=== PATIENT | female | born 1930 | race Caucasian/White ===

== ENCOUNTER 2018-04-07 09:52 | Emergency (ER) | payer MEDICARE, OTHER ==
[~2018-04-07 09:52] MED LIST: ACET325T9 PO; AMOX1TAB61 PO; AMOX500C PO; DOCU-109 PO; FERR325T14 PO; FLUT1DIS3 IH; GUAI-108 PO; IPRA3AMP29 NEB; LISI10TA2 PO; LISI1TAB7 PO; MAG30ORA2 PO; MAGN2400 PO; METH29OI TP; NYST15PO9 TP; OLAN5TAB7 PO
[2018-04-07] MEDS ORDERED: IV NORMAL SALINE 500ML 500 ML IV ONE (10:15)
--- NOTE | 2018-04-07 10:18 | PHYS DOC ---
Past History Past Medical History: Hypertension Past Surgical History: Hip Replacement Alcohol Use: None Drug Use: None Adult General Chief Complaint Chief Complaint: SHORTNESS OF BREATH HPI HPI 87 year old female presents via EMS from [facility] with shortness of breath. The patient was eating breakfast and the staff felt like she was having some respiratory distress. Nursing oh found her O2 sat on room air 93%. They called EMS. EMS found her oxygen to be 96%. She does have wet sounding cough and is not overly conversant. We're unsure of her baseline in this regard, but she is reported to have dementia. The patient is able to tell us her name and she is aware she is at the hospital. She states feeling "sick" but denies any pain and does not really answer the question if she is short of breath. She has not been reported to have fever at the facility. Review of Systems Review of Systems Constitutional: Denies fever or chills [] Eyes: Denies change in visual acuity, redness, or eye pain [] HENT: Denies nasal congestion or sore throat [] Respiratory: Cough, shortness of breath [] Cardiovascular: No additional information not addressed in HPI [] GI: Denies abdominal pain, nausea, vomiting, bloody stools or diarrhea [] : Denies dysuria or hematuria [] Musculoskeletal: Denies back pain or joint pain [] Integument: Denies rash or skin lesions [] Neurologic: Denies headache, focal weakness or sensory changes [] Endocrine: Denies polyuria or polydipsia [] All other systems were reviewed and found to be within normal limits, except as documented in this note. Current Medications Current Medications Current Medications Medications (Trade) Dose Ordered Sig/Alla Start Time Stop Time Status Last Admin Dose Admin Albuterol/ Ipratropium (Duoneb) 3 ml 1X ONCE 04/07/18 10:15 04/07/18 10:16 UNV Sodium Chloride 500 ml @ 0 mls/hr 1X ONCE 04/07/18 10:15 04/07/18 10:16 UNV Allergies Allergies Allergies Coded Allergies Type Severity Reaction Last Updated Verified No Known Drug Allergies 12/28/14 No Physical Exam Physical Exam Constitutional: Well developed, well nourished, no acute distress, non-toxic appearance. [] HENT: Normocephalic, atraumatic, bilateral external ears normal, oropharynx moist, no oral exudates, nose normal. [] Eyes: PERRLA, EOMI, conjunctiva normal, no discharge. [] Neck: Normal range of motion, no tenderness, supple, no stridor. [] Cardiovascular:Heart rate regular rhythm, no murmur [] Lungs & Thorax: Bilateral breath sounds decreased at the bases. No wheezing.[] Abdomen: Bowel sounds normal, soft, no tenderness, no masses, no pulsatile masses. [] Skin: Warm, dry, no erythema, no rash. [] Back: No tenderness, no CVA tenderness. [] Extremities: No tenderness, no cyanosis, no clubbing, ROM intact, no edema. [] Neurologic: Alert and oriented to person and place, normal motor function, normal sensory function, no focal deficits noted, but bilateral upper extremity weakness that is symmetrical. [] Psychologic: Affect normal, mood blunted. [] EKG EKG [] Radiology/Procedures Radiology/Procedures [] Impressions: EXAM: Chest, single view. HISTORY: Cough. Shortness of breath. COMPARISON: CT dated 12/30/2014. FINDINGS: A frontal view of the chest is obtained. There is no consolidation, pleural effusion or pneumothorax. The heart is normal in size. There are multiple calcified granulomas. There are few additional small nodular opacities within the bilateral upper and mid thorax which may be due to noncalcified nodules or nodular infiltrate. There is suspected emphysema. IMPRESSION: 1. Several small nodular opacities within both lungs, some of which appear noncalcified. This may be due to nodular infiltrate. Follow-up can be performed to confirm stability or resolution. 2. Suspected emphysema. Electronically signed by: Cesia Maurer MD (04/07/2018 10:47 AM) [facility] DICTATED AND SIGNED BY: CESIA MAURER MD DATE: 04/07/18 1045 CC: ISABELLE FRAGA DO; PCP,NO Course & Med Decision Making Course & Med Decision Making Pertinent Labs and Imaging studies reviewed. (See chart for details) The patient's chest x-ray shows nodules in both lungs, some which are noncalcified. There is question of nodule infiltrate. The patient's labs are unremarkable. She has not white count. She has no fever. A bacterial or fungal infection does not seem likely. The patient has urinary tract infection. I will treat her with 1 g of Rocephin in the ED followed by a 5 day course of nitrofurantoin. The patient is stable. I believe she can return to the nursing facility after we initiated treatment. [] Dragon Disclaimer Dragon Disclaimer This electronic medical record was generated, in whole or in part, using a voice recognition dictation system. Departure Departure: Referrals: PCP,AGATA (PCP) Scripts Nitrofurantoin Macrocrystal (NITROFURANTOIN) 100 Mg Capsule 1 CAP PO BID, #10 CAP Prov: ISABELLE FRAGA DO 04/07/18 ISABELLE FRAGA DO Apr 07, 2018 10:18
[2018-04-07] MEDS ORDERED: IPRATRPIUM/ALBUTEROL 0.5/2.5MG 3 ML NEBU. NEB ONE (10:30)
[2018-04-07 10:45] LABS: BASO # 0.1 x10^3/uL (0.0-0.2); BASO % 1 % (0-3); EOS # 0.1 x10^3/uL (0.0-0.7); EOS % 1 % (0-3); HEMATOCRIT 30.2 % (36.0-47.0); HEMOGLOBIN 10.1 g/dL (12.0-15.5); LYMPH # 0.7 x10^3/uL (1.0-4.8); LYMPH % 7 % (24-48); MEAN CORPUSCULAR HEMOGLOBIN 30 pg (25-35); MEAN CORPUSCULAR HGB CONC 34 g/dL (31-37); MEAN CORPUSCULAR VOLUME 89 fL (79-100); MONO # 0.8 x10^3/uL (0.0-1.1); MONO % 8 % (0-9); NEUT % 83 % (31-73); PLATELET COUNT 365 x10^3/uL (140-400); RED CELL DISTRIBUTION WIDTH 13.6 % (11.5-14.5); WHITE BLOOD COUNT 9.7 x10^3/uL (4.0-11.0)
[2018-04-07 10:50] VITALS: BP 117/64
--- NOTE | 2018-04-07 10:50 | RAD ---
EXAM: Chest, single view. HISTORY: Cough. Shortness of breath. COMPARISON: CT dated 12/30/2014. FINDINGS: A frontal view of the chest is obtained. There is no consolidation, pleural effusion or pneumothorax. The heart is normal in size. There are multiple calcified granulomas. There are few additional small nodular opacities within the bilateral upper and mid thorax which may be due to noncalcified nodules or nodular infiltrate. There is suspected emphysema. IMPRESSION: 1. Several small nodular opacities within both lungs, some of which appear noncalcified. This may be due to nodular infiltrate. Follow-up can be performed to confirm stability or resolution. 2. Suspected emphysema. Electronically signed by: Cesia Maurer MD (04/07/2018 10:47 AM) [facility]
[2018-04-07 10:58] LABS: ALBUMIN 2.4 g/dL (3.4-5.0); ALBUMIN/GLOBULIN RATIO 0.6 (1.0-1.7); CALCIUM 9.5 mg/dL (8.5-10.1); CREATININE 1.1 mg/dL (0.6-1.0); GFR 47.1; POTASSIUM 4.3 mmol/L (3.5-5.1); TOTAL BILIRUBIN 0.3 mg/dL (0.2-1.0); TOTAL PROTEIN 6.4 g/dL (6.4-8.2)
[2018-04-07 12:25] LABS: BILIRUBIN,URINE NEG (NEG); CLARITY,URINE CLEAR; COLOR,URINE YELLOW; GLUCOSE,URINE NEG (NEG)
[2018-04-07 12:26] LABS: BACTERIA,URINE MANY /HPF (0-FEW); NITRITE,URINE POS (NEG); RBC,URINE 0 /HPF (0-2); SQUAMOUS EPITHELIAL CELL,UR OCC /LPF; UROBILINOGEN,URINE 0.2 mg/dL (0.2 mg/dL)
[2018-04-07] MEDS ORDERED: SULF1TAB24 PO (13:35)
[2018-04-07] MEDS ORDERED: NITR100C PO (13:40)
[2018-04-07] MEDS ORDERED: cefTRIAXone IV Push 1 GM VIAL. IVP ONE (13:45)
== END 2018-04-07 14:35 ==
LOC: ER 09:52
DX: R91.8 Other nonspecific abnormal finding of lung field (principal); N39.0 Urinary tract infection, site not specified; I10 Essential (primary) hypertension; R53.1 Weakness
CPT/HCPCS: 36415; 71045; 80053; 81001; 85025; 87086; 94640; 96374; 99285; J0696; J7040; J7620; 87186

== ENCOUNTER 2019-04-24 12:05 | Inpatient (IN) | payer MEDICARE, OTHER ==
[~2019-04-24] VITALS: Ht 157.5 cm; Wt 43.6 kg
[~2019-04-24 12:05] MED LIST changes: +LISI1TAB20 PO; -LISI1TAB7 PO; +NITR100C PO; +SULF1TAB24 PO
--- NOTE | 2019-04-24 12:38 | PHYS DOC ---
Past History Past Medical History: Dementia, Depression, Hypertension Past Surgical History: Hip Replacement Alcohol Use: None Drug Use: None Adult General Chief Complaint Chief Complaint: SHORTNESS OF BREATH HPI HPI 88-year-old female with underlying history of dementia, COPD presents to the emergency department with complaints of shortness of breath, hypoxia. Apparently patient was diagnosed with pneumonia at the nursing facility as morning had low saturations requiring 15 L per EMS and subsequent is brought to the ER for further evaluation. Patient is unable to provide any further information with regards to her symptoms. Patient is a full code. Review of Systems Review of Systems Review of systems unable to be determined given patient's unwind dementia with behavioral disturbance. She does not answer questions upon evaluation. All other systems were reviewed and found to be within normal limits, except as documented in this note. Allergies Allergies Allergies Coded Allergies Type Severity Reaction Last Updated Verified No Known Drug Allergies 12/28/14 No Physical Exam Physical Exam Constitutional: Well developed, well nourished, no acute distress, non-toxic appearance. [] HENT: Normocephalic, atraumatic, bilateral external ears normal, oropharynx dry, no oral exudates, nose normal. [] Eyes: PERRLA, EOMI, conjunctiva normal, no discharge. [] Cardiovascular:Heart rate regular rhythm, no murmur [] Lungs & Thorax: Bilateral breath sounds clear to auscultation [] Abdomen: Bowel sounds normal, soft, no tenderness, no masses, no pulsatile masses. [] Skin: Warm, dry, no erythema, no rash. [] Extremities: No tenderness, no cyanosis, no clubbing, ROM intact, no edema. [] Neurologic: Alert, moving all extremities. She is unable to provide reviews of systems Psychologic: Agitated at times Current Patient Data Vital Signs Vital Signs Date Time Temp Pulse Resp B/P (MAP) Pulse Ox O2 Delivery O2 Flow Rate FiO2 04/24/19 12:15 88 22 99/59 (72) 100 Nasal Cannula 2.0 EKG EKG EKG reviewed 1227, no evidence of acute ST or T wave change, no ST elevation. Heart rate 81 normal axis[] Radiology/Procedures Radiology/Procedures [address] [address] IMAGING REPORT Signed PATIENT: CORONA WILKS ACCOUNT: [id number] : 1930 LOCATION: ER AGE: 88 SEX: F EXAM STATUS: REG ER ORD. PHYSICIAN: SARAH HAMPTON MD REASON: SOB/Hypoxia PROCEDURE: PORTABLE CHEST 1V Examination: PORTABLE CHEST 1V History: Shortness of breath Comparison/Correlation: 04/07/2018 AP view chest Findings: Portable upright frontal view of the chest was obtained. Heart size normal. No focal infiltrate. Interstitial thickening of the lung peña is similar to prior exam. Multiple small nodular opacity is again seen without significant change. No pneumothorax. No definite finding of pleural effusion. Scoliosis of the low thoracic and lumbar spine is noted. Compression deformity of a midthoracic vertebral body may be present. Impression: No no focal infiltrate. No significant change. Electronically signed by: Tejinder Iverson MD (04/24/2019 12:46 PM) [facility] DICTATED AND SIGNED BY: TEJINDER IVERSON MD DATE: 04/24/19 1246 CC: SARAH HAMPTON MD; RJ AMEZCUA MD ~ [] Course & Med Decision Making Course & Med Decision Making Pertinent Labs and Imaging studies reviewed. (See chart for details) [] 88-year-old female with underlying history of dementia, COPD presents to the emergency department with complaints of shortness of breath, hypoxia. Apparently patient was diagnosed with pneumonia at the nursing facility as morning had low saturations requiring 15 L per EMS and subsequent is brought to the ER for further evaluation. Patient is unable to provide any further information with regards to her symptoms. Patient is a full code. Imaging does not reveal acute consolidation and patient has had no hypoxia issues in the department. Labs reviewed with evidence of JOHN, uremia, leukocytosis. Will discuss admit with Hospitalist. Rocephin 1gm provided, IVF 1 liter, with continued 75ml/hr. Cultures obtained, UA pending. Lactic acid 1.7. Dragon Disclaimer Dragon Disclaimer This electronic medical record was generated, in whole or in part, using a voice recognition dictation system. Departure Departure: Impression: Primary Impression: Acute kidney injury Additional Impressions: Uremia Dementia with behavioral disturbance Disposition: ADMITTED INPATIENT Admitting Physician: Breezy Martinez Condition: STABLE Referrals: RJ AMEZCUA MD (PCP) Problem Qualifiers Additional Impressions: Dementia with behavioral disturbance Dementia type: Alzheimer's disease Alzheimer's disease onset: unspecified onset Qualified Codes: G30.9 - Alzheimer's disease, unspecified; F02.81 - D ementia in other diseases classified elsewhere with behavioral disturbance SARAH HAMPTON MD Apr 24, 2019 12:38
--- NOTE | 2019-04-24 12:49 | RAD ---
Examination: PORTABLE CHEST 1V History: Shortness of breath Comparison/Correlation: 04/07/2018 AP view chest Findings: Portable upright frontal view of the chest was obtained. Heart size normal. No focal infiltrate. Interstitial thickening of the lung peña is similar to prior exam. Multiple small nodular opacity is again seen without significant change. No pneumothorax. No definite finding of pleural effusion. Scoliosis of the low thoracic and lumbar spine is noted. Compression deformity of a midthoracic vertebral body may be present. Impression: No no focal infiltrate. No significant change. Electronically signed by: Tejinder Resendiz MD (04/24/2019 12:46 PM) [facility]
[2019-04-24] MEDS ORDERED: cefTRIAXone SODIUM 1 GM VIAL ONE (13:00)
[2019-04-24] MEDS ORDERED: IV NORMAL SALINE 50ML 50 ML ONE (13:00)
[2019-04-24 13:29] LABS: ALBUMIN 3.3 g/dL (3.4-5.0); ALBUMIN/GLOBULIN RATIO 1.1 (1.0-1.7); BASO % 0 % (0-3); CALCIUM 9.8 mg/dL (8.5-10.1); EOS % 0 % (0-3); GFR 14.8; HEMATOCRIT 41.8 % (36.0-47.0); HEMOGLOBIN 13.5 g/dL (12.0-15.5); LYMPH # 0.4 x10^3/uL (1.0-4.8); LYMPH % 2 % (24-48); MEAN CORPUSCULAR HEMOGLOBIN 29 pg (25-35); MEAN CORPUSCULAR HGB CONC 32 g/dL (31-37); MEAN CORPUSCULAR VOLUME 89 fL (79-100); MONO # 0.7 x10^3/uL (0.0-1.1); MONO % 4 % (0-9); NEUT % 94 % (31-73); PLATELET COUNT 379 x10^3/uL (140-400); POTASSIUM 4.6 mmol/L (3.5-5.1); RED BLOOD COUNT 4.69 x10^6/uL (3.50-5.40); RED CELL DISTRIBUTION WIDTH 15.1 % (11.5-14.5); TOTAL BILIRUBIN 0.7 mg/dL (0.2-1.0); TOTAL PROTEIN 6.4 g/dL (6.4-8.2); WHITE BLOOD COUNT 18.1 x10^3/uL (4.0-11.0)
[2019-04-24] MEDS ORDERED: IV NORMAL SALINE 1,000ML 1,000 ML IV ONE (13:45)
[2019-04-24] MEDS ORDERED: ONDANSETRON PF 4 MG/2 ML VIAL. IV PRN (14:00)
[2019-04-24 14:02] LABS: % BANDS 1 % (0-9); % LYMPHS 3 % (24-48); % MONOS 6 % (0-10); % SEGS 90 % (35-66)
[2019-04-24 14:04] LABS: PLT ESTIMATE ADEQUATE (ADEQUATE); TOXIC GRANULATION SLIGHT
--- NOTE | 2019-04-24 14:18 | EKG ---
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
[2019-04-24 15:30] VITALS: BP 99/65
[2019-04-24] MEDS ORDERED: METHYL SALICYLATE/MENTHOL TOPICAL OINTMENT 57GM TUBE. TP PRN (17:45)
[2019-04-24] MEDS ORDERED: MAG HYDROX/AL HYDROX/SIMETH 30 ML ORAL.SUSP PO PRN (17:45)
[2019-04-24] MEDS ORDERED: ACETAMINOPHEN 325 MG TABLET PO PRN (17:45)
[2019-04-24] MEDS ORDERED: IPRATRPIUM/ALBUTEROL 0.5/2.5MG 3 ML NEBU. NEB PRN (17:45)
[2019-04-24] MEDS: IV NORMAL SALINE 1,000ML 1,000 ML IV SCH (17:45)
[2019-04-24] MEDS ORDERED: MAGNESIUM HYDROXIDE 2,400 MG/30 ML ORAL.SUSP. PO PRN (17:45)
[2019-04-24] MEDS ORDERED: TRIA15CR50 TP (18:12)
[2019-04-24] MEDS ORDERED: MULT1TAB52 PO (18:12)
[2019-04-24] MEDS ORDERED: GLYC0.2V IJ (18:12)
[2019-04-24] MEDS ORDERED: FLUT1AER IH (18:12)
[2019-04-24] MEDS ORDERED: GUAI-447 PO (18:12)
[2019-04-24] MEDS ORDERED: MEMA1CAP3 PO (18:12)
[2019-04-24] MEDS ORDERED: [UNRECOGNIZED DRUG - OTHER] (18:15)
[2019-04-24] MEDS ORDERED: glycopyrrolate IH (18:17)
[2019-04-24 18:21] VITALS: BP 91/62
[2019-04-24] MEDS ORDERED: guaiFENesin DM 200MG/20MG 10 ML SYRUP PO PRN (18:45)
[2019-04-24] MEDS ORDERED: ALBUTEROL SULFATE 2.5 MG/3 ML NEBU. NEB SCH (20:00)
[2019-04-24] MEDS ORDERED: BUDESONIDE 0.5 MG/2 ML NEBU NEB SCH (20:00)
--- NOTE | 2019-04-24 20:06 | HP ---
ADMIT DATE: 04/24/2019 HISTORY OF PRESENT ILLNESS: The patient is an 88-year-old female patient, a resident at [facility] in [place], who apparently was brought to the Emergency Room because of increasing shortness of breath and hypoxia. She apparently was diagnosed with pneumonia at the nursing facility and was noted to be extremely hypoxic, requiring 15 liters by nonrebreather mask and she was brought to the Emergency Room for further evaluation. She apparently has completed 10 days course of Levaquin. The patient herself was unable to provide any further information. She has extremely demented. She continued to be full code. PAST MEDICAL HISTORY: Significant for dementia, Alzheimer type. She has a history of dysphagia, muscle weakness, right knee osteoarthritis, generalized osteoarthritis and dysphagia, history of recurrent falls. She is also known to have chronic obstructive pulmonary disease, peripheral vascular disease, major depressive disorder, hypertension and difficulty walking. PAST SURGICAL HISTORY: Unremarkable. ALLERGIES: She has no known drug allergies. MEDICATIONS: She is currently on following medications: She was on amoxicillin 500 mg 3 times a day, nitrofurantoin Macrocrystal 100 mg twice a day, ipratropium bromide, albuterol sulfate 3 mL by nebulizer 4 times a day, ferrous sulfate 300 mg daily, lisinopril 10 mg once a day, analgesic balm applied topically 4 times a day, Tylenol 650 mg every 6 hours, olanzapine 1.25 mg every 2 hours, Advair Diskus 250/50 one puff twice a day, Maalox 15 mL after meals, Colace 100 mg daily, milk of magnesia 30 mL p.o. daily p.r.n. for constipation, nystatin powder apply topically twice a day. FAMILY HISTORY: Noncontributory. SOCIAL HISTORY: She is a resident at [facility] in [place]. She does not smoke, drink alcohol or use any recreational drugs. REVIEW OF SYSTEMS: Not obtainable. PHYSICAL EXAMINATION: GENERAL: On arrival to the Emergency Room, she was confused and somewhat pale, but no jaundice, cyanosis or thyromegaly. No jugular venous distention. No lower limb edema. VITAL SIGNS: Her heart rate was 93, blood pressure was 99/59, temperature was 97.3, respiratory rate was 22, and oxygen saturation 100% on 2 liters of oxygen. HEAD, EYES, EARS, NOSE AND THROAT: Showed normocephalic, atraumatic. NECK: Supple. HEART: Showed normal first and second heart sounds with no gallop, rub or murmur. CHEST: Clear to auscultation. No crepitation or rhonchi. ABDOMEN: Distended, soft, nontender. No guarding or rigidity. No organomegaly. All hernial orifice intact. Bowel sounds normal. NEUROLOGIC: She was demented without any obvious lateralizing sign. All her cranial nerves intact. She moves upper extremities to much good extent than lower extremities, mostly bedbound, chair bound. LABORATORY DATA: On arrival to the Emergency Room showed a white cell count of 18,100, hemoglobin 13.5, hematocrit 41.8, MCV 89 and platelet count of 379,000 with normal manual differential. Her chemistry showed a serum sodium 142, potassium 4.6, chloride 104, bicarbonate 26, anion gap of 12, BUN 38, creatinine 3, estimated GFR was 14.8. Her glucose was 91, lactic acid 1.7. Her calcium was 9.8. Total bilirubin is 0.7. AST, ALT and alkaline phosphatase slightly elevated. Total protein was 6.4, albumin was 3.3. Her D-dimer was 0.76. Her chest x-ray showed that the heart size is normal. No focal infiltrate. Interstitial thickening of the lung peña are similar to prior exam. Multiple small nodular opacities again seen without significant change. No pneumothorax, no definite finding of pleural effusion, scoliosis of the lower thoracic and lumbar spine is noted, compression deformity of the mid thoracic vertebral body may be present. ASSESSMENT AND PLAN: The patient was admitted with hypoxemia, acute kidney injury. Her chest x-ray is clear. She probably has urinary tract infection. We will continue with IV fluid. She did receive a liter of fluid in the Emergency Room and also a gram of ceftriaxone, we will continue that. We reconciled her medication. I will obviously hold her lisinopril. Continue with IV Rocephin and IV fluid and monitor her lab work tomorrow. LUISA RINCON MD DR: JOSE ANGEL/juan JOB#: [id number] / [id number]
[2019-04-24] MEDS: ALBUTEROL SULFATE 2.5 MG/3 ML NEBU. NEB SCH (20:28)
[2019-04-24] MEDS: BUDESONIDE 0.5 MG/2 ML NEBU NEB SCH (20:28)
[2019-04-24] MEDS: LACTOBACILLUS RHAMNOSUS GG 1 CAPSULE. PO SCH (20:59)
[2019-04-24] MEDS: TRIAMCINOLONE ACETONIDE 0.1% TOPICAL OINTMENT 15GM TUBE. TP SCH (20:59)
[2019-04-24] MEDS ORDERED: NYSTATIN TOPICAL POWDER 15GM BOTTLE. TP SCH (21:00)
[2019-04-24] MEDS ORDERED: NON FORMULARY ITEM (Fluticasone/Salmeterol (Advair 250-50 Diskus) 1 PUFF) IH SCH (21:00)
[2019-04-24] MEDS: GLYCOPYRROLATE IH SCH (21:00)
[2019-04-24 22:04] LABS: BILIRUBIN,URINE NEG (NEG); CLARITY,URINE HAZY; COLOR,URINE YELLOW; GLUCOSE,URINE NEG (NEG)
[2019-04-24 22:05] LABS: AMORPHOUS SEDIMENT,UR PRESENT /HPF; BACTERIA,URINE 0 /HPF (0-FEW); NITRITE,URINE NEG (NEG); RBC,URINE 0 /HPF (0-2); SQUAMOUS EPITHELIAL CELL,UR OCC /LPF; UROBILINOGEN,URINE 0.2 mg/dL (0.2 mg/dL); WBC,URINE 0 /HPF (0-4)
[2019-04-24 23:55] VITALS: BP 94/51
[2019-04-25] MEDS: IV NORMAL SALINE 1,000ML 1,000 ML IV SCH (01:41)
[2019-04-25 05:12] VITALS: BP 109/73
[2019-04-25] MEDS: ALBUTEROL SULFATE 2.5 MG/3 ML NEBU. NEB SCH ×4 (05:26→20:00)
[2019-04-25] MEDS ORDERED: OLANZapine IM 10 MG VIAL. IM PRN (06:30)
[2019-04-25] MEDS ORDERED: FERROUS SULFATE 325 MG TABLET. PO SCH (08:00)
[2019-04-25] MEDS: GLYCOPYRROLATE IH SCH ×2 (08:04→21:00)
[2019-04-25 08:24] LABS: BASO % 0 % (0-3); EOS % 0 % (0-3); HEMATOCRIT 37.5 % (36.0-47.0); HEMOGLOBIN 12.1 g/dL (12.0-15.5); LYMPH # 0.5 x10^3/uL (1.0-4.8); LYMPH % 3 % (24-48); MEAN CORPUSCULAR HEMOGLOBIN 29 pg (25-35); MEAN CORPUSCULAR HGB CONC 32 g/dL (31-37); MEAN CORPUSCULAR VOLUME 89 fL (79-100); MONO # 0.9 x10^3/uL (0.0-1.1); MONO % 6 % (0-9); NEUT # 14.1 x10^3uL (1.8-7.7); NEUT % 91 % (31-73); PLATELET COUNT 324 x10^3/uL (140-400); WHITE BLOOD COUNT 15.5 x10^3/uL (4.0-11.0)
[2019-04-25] MEDS: DONEPEZIL HCL 10 MG TABLET PO SCH (08:27)
[2019-04-25] MEDS: MULTIVITAMIN with MINERAL TABLET. PO SCH (08:28)
[2019-04-25] MEDS: LACTOBACILLUS RHAMNOSUS GG 1 CAPSULE. PO SCH ×2 (08:28→20:24)
[2019-04-25] MEDS: MEMANTINE 10 MG TABLET. PO SCH ×2 (08:28→20:24)
[2019-04-25] MEDS: TRIAMCINOLONE ACETONIDE 0.1% TOPICAL OINTMENT 15GM TUBE. TP SCH ×2 (08:28→20:25)
[2019-04-25 09:00] LABS: ALBUMIN 2.7 g/dL (3.4-5.0); CALCIUM 8.8 mg/dL (8.5-10.1); CREATININE 2.3 mg/dL (0.6-1.0); GFR 20.1; POTASSIUM 4.3 mmol/L (3.5-5.1); TOTAL BILIRUBIN 0.5 mg/dL (0.2-1.0); TOTAL PROTEIN 5.4 g/dL (6.4-8.2)
[2019-04-25] MEDS ORDERED: NON FORMULARY ITEM (Fluticasone/Vilanterol (Breo Ellipta 100-25 Mcg Inh) 1 PUFF) IH SCH (09:00)
[2019-04-25] MEDS ORDERED: DOCUSATE SODIUM 100 MG CAPSULE PO SCH (09:00)
[2019-04-25 10:18] VITALS: BP 103/62
[2019-04-25] MEDS: BUDESONIDE 0.5 MG/2 ML NEBU NEB SCH ×2 (10:33→20:00)
[2019-04-25 13:56] VITALS: BP 96/59
[2019-04-25] MEDS: IV DEXTROSE 5% 1,000 ML IV SCH (13:57)
[2019-04-25] MEDS: MELATONIN 3 MG TABLET PO PRN (20:24)
[2019-04-25 20:39] VITALS: BP 99/68
[2019-04-26 00:58] VITALS: BP 122/80
[2019-04-26] MEDS: IV DEXTROSE 5% 1,000 ML IV SCH ×3 (01:02→20:42)
--- NOTE | 2019-04-26 03:49 | PN ---
DATE: 04/25/2019 SUBJECTIVE: The patient is resting, slightly propped up in bed, in no apparent distress. She apparently has been very restless, combative, has pulled ____ IV lines, required intramuscular olanzapine. On questioning her, she looked well and was clearly in no apparent respiratory distress. On questioning her, denied any complaint. PHYSICAL EXAMINATION: GENERAL: When I examined her, she was pale, cachectic, but no jaundice, cyanosis or thyromegaly. No jugular venous distension. No limb edema. VITAL SIGNS: Her heart rate was 82, blood pressure was 103/62, her temperature was 98, respiratory rate was 16, and oxygen saturation was 95% on room air. HEAD, EYES, EARS, NOSE AND THROAT: Showed normocephalic, atraumatic. NECK: Supple. HEART: Showed normal first and second heart sounds. No gallop or murmur. CHEST: Clear to auscultation. No crepitation, rhonchi. ABDOMEN: Distended, soft, nontender. NEUROLOGIC: She is demented without any obvious lateralizing sign. She is able to move her upper extremities ____ wheelchair bound. Her intake over the last 24 hours was 1900, no output was recorded. LABORATORY DATA: Her lab work this morning showed a serum sodium 147, potassium 4.3, chloride 113, bicarbonate 25, anion gap of 9, BUN 113, creatinine was 2.3, estimated GFR was 20 mL per minute. Her glucose was 90. Lactic acid is around 0.3, calcium was 8.8. Total bilirubin, AST, ALT, alkaline phosphatase were normal. Total protein was 5.4, albumin 2.7. White cell count was 15,500, hemoglobin 12, hematocrit 37, MCV 89 and platelet count of 324,000. ASSESSMENT: 1. Acute kidney injury. 2. Probably urinary tract infection. 3. Hypernatremia. PLAN: My plan is to switch her IV fluid to D5W as her sodium was extremely high. I held her lisinopril, continue with IV Rocephin. We will monitor her lab work tomorrow and decide ____. LUISA RINCON MD DR: JOSE ANGEL/juan JOB#: [id number] / [id number]
[2019-04-26 05:01] VITALS: BP 123/70
[2019-04-26] MEDS: ALBUTEROL SULFATE 2.5 MG/3 ML NEBU. NEB SCH ×4 (05:14→21:41)
[2019-04-26 06:50] LABS: ALBUMIN 2.3 g/dL (3.4-5.0); CALCIUM 8.4 mg/dL (8.5-10.1); CREATININE 1.6 mg/dL (0.6-1.0); GFR 30.5; POTASSIUM 3.8 mmol/L (3.5-5.1); TOTAL BILIRUBIN 0.4 mg/dL (0.2-1.0); TOTAL PROTEIN 4.7 g/dL (6.4-8.2)
[2019-04-26 06:51] LABS: HEMATOCRIT 34.5 % (36.0-47.0); RED BLOOD COUNT 3.84 x10^6/uL (3.50-5.40); RED CELL DISTRIBUTION WIDTH 15.5 % (11.5-14.5); WHITE BLOOD COUNT 12.3 x10^3/uL (4.0-11.0)
[2019-04-26] MEDS: BUDESONIDE 0.5 MG/2 ML NEBU NEB SCH ×2 (08:00→20:00)
[2019-04-26] MEDS: GLYCOPYRROLATE IH SCH ×2 (09:00→20:23)
[2019-04-26] MEDS: LACTOBACILLUS RHAMNOSUS GG 1 CAPSULE. PO SCH ×2 (09:00→20:23)
[2019-04-26] MEDS: MEMANTINE 10 MG TABLET. PO SCH ×2 (09:00→20:22)
[2019-04-26] MEDS: DONEPEZIL HCL 10 MG TABLET PO SCH (09:00)
[2019-04-26] MEDS: TRIAMCINOLONE ACETONIDE 0.1% TOPICAL OINTMENT 15GM TUBE. TP SCH ×2 (09:00→20:23)
[2019-04-26] MEDS: MULTIVITAMIN with MINERAL TABLET. PO SCH (09:00)
[2019-04-26 09:08] VITALS: BP 109/56
[2019-04-26 15:00] VITALS: BP 110/60
[2019-04-26] MEDS ORDERED: HYDROmorphone PF 2 MG/ML VIAL IV ONE (17:30)
[2019-04-26 19:31] VITALS: BP 100/57
[2019-04-26] MEDS: MELATONIN 3 MG TABLET PO PRN (20:23)
--- NOTE | 2019-04-27 04:18 | PN ---
DATE: 04/26/2019 SUBJECTIVE: The patient is resting, slightly propped up in bed, sleeping comfortably. She continued to be combative, refused to eat or drink, refused to be repositioned, attacking nursing staff; however, her lab work is steadily improving. Her sodium is down from 147 to 144. Her BUN is down to 77 from 158 and her creatinine is down from 3 to 1.6. PHYSICAL EXAMINATION: GENERAL: When I examined her, she looked pale; no jaundice, cyanosis or thyromegaly. No jugular venous distention. No lower limb edema. VITAL SIGNS: Her heart rate was 65, blood pressure was 109/56, temperature was 97.9, respiratory rate was 18 and oxygen saturation was 95% on room air. HEAD, EYES, EARS, NOSE AND THROAT: Showed normocephalic, atraumatic. NECK: Supple. HEART: Showed normal first and second heart sounds. No gallop or murmur. CHEST: Clear to auscultation. No crepitation, rhonchi. ABDOMEN: Scaphoid, soft, nontender. NEUROLOGIC: She is demented, but without any obvious lateralizing signs. All her cranial nerves intact. She moves extremities without difficulty, although she is mostly bedbound or chair-bound. Her intake was 2470, no output was recorded. LABORATORY DATA: Her lab work this morning showed a white cell count 12,300, hemoglobin 11, hematocrit 34, MCV 90 and platelet count 261,000. Her serum sodium was 144, potassium 3.8, chloride 112, bicarbonate 26, anion gap of 6, BUN 77, creatinine 1.6, estimated GFR was 30 mL per minute. Her glucose was 97, calcium was 8.3. Total bilirubin, AST, ALT, alkaline phosphatase were normal. Total protein was 4.7, albumin 3.3. ASSESSMENT: 1. Acute kidney injury, resolving. 2. Probable urinary tract infection for which she is on IV ceftriaxone. Leukocytosis is improving. 3. Hypernatremia, improving. PLAN: Continue with IV fluid in the form of D5W, continue with IV Rocephin. We will repeat her lab work tomorrow and if she is back to her baseline, she can be discharged back to [facility] Emergency Department. LUISA RINCON MD DR: JOSE ANGEL/juan JOB#: [id number] / [id number]
[2019-04-27 05:10] VITALS: BP 102/62
[2019-04-27] MEDS: ALBUTEROL SULFATE 2.5 MG/3 ML NEBU. NEB SCH ×4 (05:18→20:00)
[2019-04-27] MEDS: IV DEXTROSE 5% 1,000 ML IV SCH (05:24)
[2019-04-27 06:52] LABS: HEMATOCRIT 32.7 % (36.0-47.0); HEMOGLOBIN 10.7 g/dL (12.0-15.5); RED BLOOD COUNT 3.65 x10^6/uL (3.50-5.40); RED CELL DISTRIBUTION WIDTH 15.8 % (11.5-14.5); WHITE BLOOD COUNT 10.2 x10^3/uL (4.0-11.0)
[2019-04-27 07:02] LABS: CALCIUM 7.9 mg/dL (8.5-10.1); CREATININE 1.2 mg/dL (0.6-1.0); GFR 42.5; POTASSIUM 3.7 mmol/L (3.5-5.1)
[2019-04-27] MEDS: BUDESONIDE 0.5 MG/2 ML NEBU NEB SCH ×2 (08:00→20:00)
[2019-04-27] MEDS: TRIAMCINOLONE ACETONIDE 0.1% TOPICAL OINTMENT 15GM TUBE. TP SCH ×2 (09:00→21:00)
[2019-04-27] MEDS: GLYCOPYRROLATE IH SCH ×2 (09:00→21:00)
[2019-04-27] MEDS: MULTIVITAMIN with MINERAL TABLET. PO SCH (10:42)
[2019-04-27] MEDS: DONEPEZIL HCL 10 MG TABLET PO SCH (10:42)
[2019-04-27] MEDS: MEMANTINE 10 MG TABLET. PO SCH ×2 (10:43→21:45)
[2019-04-27] MEDS: LACTOBACILLUS RHAMNOSUS GG 1 CAPSULE. PO SCH ×2 (10:43→21:45)
[2019-04-27 10:52] VITALS: BP 119/70
--- NOTE | 2019-04-27 11:09 | PN ---
DATE: 04/27/2019 SUBJECTIVE: The patient is resting flat, sleeping comfortably, in no apparent distress, continued to be occasionally restless, agitated, combative; however, overall, she has an eventful night, has eaten some of her breakfast this morning. PHYSICAL EXAMINATION: GENERAL: When I examined her, she was lying flat, sleeping comfortably, in no apparent respiratory distress. No pallor, jaundice, cyanosis or thyromegaly. No jugular venous distention. No lower limb edema. VITAL SIGNS: Her heart rate was 72, blood pressure was 102/62, temperature was 97.6, respiratory rate was 16, and oxygen saturation was 97%. HEAD, EYES, EARS, NOSE AND THROAT: Showed normocephalic, atraumatic. NECK: Supple. HEART: Showed normal first and second heart sounds. No gallop, rub or murmur. CHEST: Clear to auscultation. No crepitation or rhonchi. ABDOMEN: Scaphoid, soft, nontender. NEUROLOGIC: She is demented, but without any obvious lateralizing sign. She is able to move extremities without difficulty, although she is mostly bedbound, chair bound. Her intake was 2469, no output was recorded. LABORATORY DATA: Serum sodium was 137, potassium 3.7, chloride 102, bicarbonate 26, anion gap of 5, BUN 48, creatinine 1.2, estimated GFR was 42 mL per minute. Her glucose 86 and 89, calcium was 7.9. Her white cell count is 10,000, hemoglobin 11, hematocrit 33, MCV 90, and platelet count of 224,000. ASSESSMENT: 1. Acute kidney injury, resolving. Her creatinine is down from 3 to 1.2. Her BUN is down from 138 to 48. 2. Urinary tract infection for which she is on IV ceftriaxone. 3. Leukocytosis, improved. 4. Hypernatremia, improving. PLAN: To change IV fluid to D5 quarter saline with potassium chloride. I will discontinue her ceftriaxone. LUISA RINCON MD DR: JOSE ANGEL/juan JOB#: [id number] / [id number]
[2019-04-27] MEDS: POTASSIUM CL 20MEQ D5-0.2%NACL 1,000 ML IV SCH (12:40)
[2019-04-27 15:18] VITALS: BP 100/64
[2019-04-27 19:20] VITALS: BP 104/66
[2019-04-27] MEDS: MELATONIN 3 MG TABLET PO PRN (21:45)
[2019-04-28] MEDS: POTASSIUM CL 20MEQ D5-0.2%NACL 1,000 ML IV SCH ×2 (00:20→15:56)
[2019-04-28 05:13] VITALS: BP 99/59
[2019-04-28] MEDS: BUDESONIDE 0.5 MG/2 ML NEBU NEB SCH ×2 (05:55→20:29)
[2019-04-28] MEDS: ALBUTEROL SULFATE 2.5 MG/3 ML NEBU. NEB SCH ×3 (05:55→18:04)
[2019-04-28] MEDS: GLYCOPYRROLATE IH SCH ×2 (09:00→21:00)
[2019-04-28] MEDS: TRIAMCINOLONE ACETONIDE 0.1% TOPICAL OINTMENT 15GM TUBE. TP SCH ×2 (09:00→21:00)
[2019-04-28] MEDS: DONEPEZIL HCL 10 MG TABLET PO SCH (10:03)
[2019-04-28] MEDS: LACTOBACILLUS RHAMNOSUS GG 1 CAPSULE. PO SCH ×2 (10:03→21:22)
[2019-04-28] MEDS: MEMANTINE 10 MG TABLET. PO SCH ×2 (10:03→21:23)
[2019-04-28] MEDS: MULTIVITAMIN with MINERAL TABLET. PO SCH (10:04)
[2019-04-28 11:11] VITALS: BP 109/64
[2019-04-28 12:34] LABS: CREATININE 1.1 mg/dL (0.6-1.0); POTASSIUM 3.9 mmol/L (3.5-5.1)
[2019-04-28 15:18] VITALS: BP 127/67
[2019-04-28 20:00] VITALS: BP 101/58
--- NOTE | 2019-04-28 21:00 | PN ---
DATE: 04/28/2019 SUBJECTIVE: The patient is resting, sitting propped up in bed, eating her lunch comfortably. She is awake, alert. Surprisingly, interactive and less combative. On questioning her, denied any complaint. PHYSICAL EXAMINATION: GENERAL: When I examined her, she was pale, cachectic, but no jaundice, cyanosis, or thyromegaly. No jugular venous distension. No limb edema. VITAL SIGNS: Her heart rate was 85, blood pressure was 109/64, temperature was 97.4, respiratory rate was 20, and oxygen saturation was 95% on room air. HEAD, EYES, EARS, NOSE AND THROAT: Showed normocephalic, atraumatic. NECK: Supple. HEART: Showed normal first and second heart sounds. No gallop or murmur. CHEST: Clear to auscultation. No crepitation or rhonchi. ABDOMEN: Distended, soft, nontender. NEUROLOGIC: She was awake, alert. All her cranial nerves intact. She moves upper extremities without difficulty. She is mostly bedbound, chair bound. Her intake over the last 24 hours was 2300, no output was recorded. LABORATORY DATA: Her lab work this morning showed a serum sodium of 136, potassium 3.9, chloride 103, bicarbonate 26, anion gap of 7, BUN 26, creatinine 1.1, estimated GFR was 47 mL per minute. Her glucose was 96 and calcium was 8. ASSESSMENT: 1. Acute kidney injury, resolving her creatinine is down from 3-1.1 and her BUN is down from 138-26. 2. Urinary tract infection for which she is on IV ceftriaxone. 3. Leukocytosis, improved. 4. Hypernatremia, improved. Her serum sodium is down from 147-136. PLAN: My plan is to continue IV fluid and hopefully she will be discharged back to [facility] in [place] tomorrow. LUISA RINCON MD DR: JOSE ANGEL/juan JOB#: [id number] / [id number]
[2019-04-28] MEDS: MELATONIN 3 MG TABLET PO PRN (21:20)
[2019-04-29] MEDS: BUDESONIDE 0.5 MG/2 ML NEBU NEB SCH (04:58)
[2019-04-29] MEDS: ALBUTEROL SULFATE 2.5 MG/3 ML NEBU. NEB SCH ×2 (04:58→09:23)
[2019-04-29 05:10] VITALS: BP 122/63
[2019-04-29 07:01] LABS: CALCIUM 8.2 mg/dL (8.5-10.1); GFR 52.4; POTASSIUM 4.2 mmol/L (3.5-5.1)
[2019-04-29] MEDS: GLYCOPYRROLATE IH SCH (09:00)
[2019-04-29] MEDS: DONEPEZIL HCL 10 MG TABLET PO SCH (09:05)
[2019-04-29] MEDS: POTASSIUM CL 20MEQ D5-0.2%NACL 1,000 ML IV SCH (09:05)
[2019-04-29] MEDS: MEMANTINE 10 MG TABLET. PO SCH (09:05)
[2019-04-29] MEDS: MULTIVITAMIN with MINERAL TABLET. PO SCH (09:05)
[2019-04-29] MEDS: LACTOBACILLUS RHAMNOSUS GG 1 CAPSULE. PO SCH (09:05)
[2019-04-29 10:50] VITALS: BP 118/74
[2019-04-29 13:04] VITALS: BP 130/77
[2019-04-29] MEDS: TRIAMCINOLONE ACETONIDE 0.1% TOPICAL OINTMENT 15GM TUBE. TP SCH (13:27)
--- NOTE | 2019-04-29 21:49 | DS ---
DATE OF DISCHARGE: 04/29/2019 HISTORY AND HOSPITAL COURSE: The patient is an 88-year-old female patient, a resident at [facility] in [place], who was admitted on 04/24/2019 with a complaint of increasing shortness of breath and hypoxia. She apparently was diagnosed with pneumonia at the nursing facility and was noted to be extremely hypoxic, requiring 15 liters by nonrebreather mask. She apparently has completed a 10-day course of Levaquin. The patient is extremely demented, does not give any useful information. She was evaluated in the Emergency Room, was found to be hyperkalemic with acute kidney injury with a BUN of 138, creatinine of 3. X-ray showed no focal infiltrate and urinalysis was unremarkable, although initially we treated her with IV ceftriaxone as well as IV fluid. Her kidney function has steadily improved such that her BUN came down from 138 to 15 and creatinine from 3 to 1. She has marked leukocytosis when she arrived that has also improved from 18,000 to 10,000. She remained afebrile throughout her stay. PHYSICAL EXAMINATION: GENERAL: When I examined her today, she was resting, slightly propped up in bed, in no apparent respiratory distress. She was pale, but no jaundice, cyanosis, or thyromegaly. No jugular venous distension. No limb edema. VITAL SIGNS: Her heart rate was 81, blood pressure was 118/74, temperature was 97.6, respiratory rate was 18 and oxygen saturation was 98% on room air. HEAD, EYES, EARS, NOSE AND THROAT: Showed normocephalic, atraumatic. NECK: Supple. HEART: Showed normal first and second heart sounds. No gallop, rub or murmur. CHEST: Clear to auscultation. No crepitation or rhonchi. ABDOMEN: Distended, soft, nontender. NEUROLOGIC: She was demented, but without any obvious lateralizing sign. All her cranial nerves intact. She moves upper extremities to much good extent than lower extremities, mostly bedbound, chair bound. Her intake over the last 24 hours was 2370, no output was recorded. LABORATORY DATA: Her lab work this morning showed a white cell count of 10,000, hemoglobin 11, hematocrit 33, MCV 90 and platelet count 224,000. Serum sodium was 136, potassium 4.2, chloride 103, bicarbonate 28, anion gap of 5, BUN 15, creatinine 1, estimated GFR was 52 mL per minute. Her glucose was 74, calcium was 8.2. DISCHARGE MEDICATIONS: She will be discharged home to continue on following medications, Namenda/donepezil or Namzaric 28/10 mg 1 capsule once a day and she is on Robitussin with guaifenesin, dextromethorphan 10 mL every 4 hours as needed, Breo Ellipta 1 puff once a day, triamcinolone acetonide cream applied topically twice a day, multivitamin 1 tablet once a day. I have discontinued her lisinopril. FINAL DISCHARGE DIAGNOSES: 1. Acute kidney injury, resolved. Her creatinine is down to 1, BUN is 15. 2. Urinary tract infection, treated with intravenous ceftriaxone. 3. Leukocytosis, improved. 4. Hypernatremia, resolved. Her most recent serum sodium is down to 136. 5. Other medical problems include: A. Hypertension, well controlled. B. Dementia, Alzheimer's type. LUISA RINCON MD DR: JOSE ANGEL/juan JOB#: [id number] / [id number]
== END 2019-04-29 13:45 | DRG 871 ==
LOC: ER 12:05 → ICU 14:00 → 1 SOUTH 04-27 06:00
PROVIDERS: ADMIT Internal Medicine; ATTEND Internal Medicine
DX: A41.9 Sepsis, unspecified organism (principal); N17.0 Acute kidney failure with tubular necrosis; N39.0 Urinary tract infection, site not specified; F02.81 Dementia in other diseases classified elsewhere, unspecified severity, with behavioral disturbance; E87.0 Hyperosmolality and hypernatremia; J44.0 Chronic obstructive pulmonary disease with (acute) lower respiratory infection; R09.02 Hypoxemia; I10 Essential (primary) hypertension; E87.5 Hyperkalemia; G30.9 Alzheimer's disease, unspecified; I73.9 Peripheral vascular disease, unspecified; M17.11 Unilateral primary osteoarthritis, right knee; Z96.649 Presence of unspecified artificial hip joint; F32.9 Major depressive disorder, single episode, unspecified; Z79.899 Other long term (current) drug therapy
CPT/HCPCS: 36415; 71045; 80048; 80053; 81001; 83605; 83880; 85007; 85025; 85027; 85379; 87040; 87641; 93005; 94640; 96365; 96366; J0696; J7613; J7626; 99285-25; J7030

== ENCOUNTER 2019-06-09 12:50 | Inpatient (IN) | payer MEDICARE, OTHER ==
[2019-06-09] VITALS (8 sets, daily range): BP systolic 95–118; BP diastolic 42–77
[~2019-06-09] VITALS: Ht 152.4 cm; Wt 43.2 kg
[~2019-06-09 12:50] MED LIST changes: +FLUT1AER IH; +GLYC0.2V IJ; +GUAI-447 PO; +MEMA1CAP3 PO; +MULT1TAB52 PO; +TRIA15CR50 TP; +[UNRECOGNIZED DRUG - OTHER]; +glycopyrrolate IH
[2019-06-09] MEDS ORDERED: IV NORMAL SALINE 1,000ML 1,000 ML IV SCH (12:54)
[2019-06-09] MEDS ORDERED: PIPERACILLIN/TAZOBACTAM 4.5 GM in IV NORMAL SALINE 50ML 50 ML IV ONE (13:00)
[2019-06-09] MEDS ORDERED: 0.9 % SODIUM CHLORIDE 10 ML DISP.SYRIN. IV PRN (13:00)
--- NOTE | 2019-06-09 13:05 | PHYS DOC ---
Past History Past Medical History: Anemia, Arthritis, COPD, Dementia, Depression, Hypertension Past Surgical History: Other Alcohol Use: None Drug Use: None Adult General Chief Complaint Chief Complaint: AMS HPI HPI 88-year-old female presents via EMS from her nursing facility with concern for altered mental status and sepsis. The patient is normally alert to self, but she was not alert to self earlier today. Her oxygen saturation this morning was in the mid 90s, but then dropped below 80 by noon. The patient was diagnosed with UTI and placed on Macrobid, but she is not wanting to eat or drink. It is unclear she got any more than one dose. The care facility found her to be tachycardic and hypoxic, so they sent her to the emergency room. The patient is awake and alert, but not answering questions. No history is obtained from the patient. She was reported to have a chest x-ray performed yesterday that was negative for acute findings. No report of fever. Review of Systems Review of Systems Unable to perform due to AMS. Allergies Allergies Allergies Coded Allergies Type Severity Reaction Last Updated Verified No Known Drug Allergies 12/28/14 No Physical Exam Physical Exam Constitutional: Well developed, thin, moderate acute distress. [] HENT: Normocephalic, atraumatic, bilateral external ears normal, oropharynx moist, no oral exudates, nose normal. [] Eyes: PERRLA, EOMI, conjunctiva normal, no discharge. [] Neck: Normal range of motion, no tenderness, supple, no stridor. [] Cardiovascular:Heart rate regular rhythm, no murmur [] Lungs & Thorax: Bilateral breath sounds clear to auscultation [] Abdomen: Bowel sounds normal, soft, no tenderness, no masses, no pulsatile masses. [] Skin: Warm, dry, no erythema, no rash. [] Back: No tenderness, no CVA tenderness. [] Extremities: No tenderness, no cyanosis, no clubbing, ROM intact, no edema. Moves all extremities.[] Neurologic: Awake, normal motor function, no focal deficits noted. Not answering questions. Spontaneously moving extremities. [] Psychologic: Unable to evaluate. [] EKG EKG [] Radiology/Procedures Radiology/Procedures [] Impressions: EXAM: Chest, single view. HISTORY: Sepsis. COMPARISON: Radiograph dated 04/24/[address] dated 12/30/2014. FINDINGS: A frontal view of the chest is obtained. There is chronic interstitial changes. There are small nodular opacities overlying both lungs. There is a stable cardiac silhouette. There is no consolidation, pleural effusion or pneumothorax. IMPRESSION: 1. Suspected chronic interstitial changes. 2. Small nodular opacities overlying both lungs, possibly corresponding with noncalcified nodules on the prior CT dated 12/30/2014. The possibility of superimposed nodular infiltrate is not excluded. Electronically signed by: Cesia Simon MD (06/09/2019 1:40 PM) [facility] DICTATED AND SIGNED BY: CESIA SIMON MD DATE: 06/09/19 1340 CC: ISABELLE FRAGA DO; RJ AMEZCUA MD ~ Course & Med Decision Making Course & Med Decision Making Pertinent Labs and Imaging studies reviewed. (See chart for details) On arrival, the patient was persistently tachycardic or hypotensive and tachypneic. We started the sepsis protocol. Blood cultures and lactic acid have been sent. We started 30 mL/kg of normal saline. After cultures the patient will be given Zosyn. Patient's chest x-ray also shows nodules that could be infilt rate. I will additionally add vancomycin due to the patient's residence in a care facility. Labs are still pending. The patient's labs have several significant findings. See chart for details. She has hypernatremia of 165. She has lactic acid greater than 4. Creatinine is 2.2. She did begin to have urine output after 1.5 L normal saline. Her urinalysis is pending. Given her hypernatremia, I will switch her fluids over to D5 water at 60 mL per hour. This is 1.35 mL/kg per hour. Her potassium is normal. She has an elevated troponin of 0.284. She also has an elevated proBNP. I spoke to the hospitalist, Dr. Martinez and he has agreed to admit the patient to the ICU at this facility. The patient's urine is significant for a lot of yeast. The specific I specific isolate is not available at this time. I will give the patient 200mg of fluconazole IV. Greater than 69 minutes of critical care time has been spent on this patient exclusive of other billable procedures. [] Dragon Disclaimer Dragon Disclaimer This electronic medical record was generated, in whole or in part, using a voice recognition dictation system. Departure Departure: Impression: Primary Impression: Sepsis Additional Impressions: AMS (altered mental status) Pneumonia Dehydration Elevated serum creatinine Hypernatremia Elevated troponin UTI (urinary tract infection) Disposition: ADMITTED INPATIENT Admitting Physician: Breezy Martinez Condition: GUARDED Referrals: RJ AMEZCUA MD (PCP) Sepsis Assessment Date and Time of Assessment Date: Jun 09, 2019 Time: 01:00 Vital Signs Vital Signs Vital Signs Date Time Temp Pulse Resp B/P (MAP) Pulse Ox O2 Delivery O2 Flow Rate FiO2 06/09/19 13:15 98.4 134 30 80 NonRebreather Mask Respirations Respiratory Effort: Shortness of air, Labored Respiratory Pattern: Tachypnea Cardiovascular Pulse Rhythm: Regular HEART: No murmurs noted Lung Sounds Breath Sounds: Coarse Capillary Refill Capillary Refill: Lt Hand > 3 seconds Peripheral Pulse Pulse Location: Monitor Pulse Strength: Normal (2+) Pulse Assessment Method: NIBP Integumentary Skin: Warm Skin Moisture: Dry Skin Turgor: Decreased Skin Color: no edema Fingernail Color: WNL Sepsis Assessment Date and Time of Assessment Date: Jun 09, 2019 Time: 14:00 Fluid Challenge: Is the fluid challenge complet: Yes IBW Target Volume Used: No BMI > 30: No Blood Culture TIme: 13:00 Time Antibiotics Given: 13:15 Vital Signs Vital Signs Vital Signs Date Time Temp Pulse Resp B/P (MAP) Pulse Ox O2 Delivery O2 Flow Rate FiO2 06/09/19 13:15 98.4 134 30 80 NonRebreather Mask Temperature Source: Rectal Respirations Respiratory Effort: Labored Respiratory Pattern: Normal Cardiovascular Pulse Rhythm: Regular Heart: No murmurs noted Lung Sounds Breath Sounds: Coarse Capillary Refill Capillary Refill: Lt Hand > 3 seconds Peripheral Pulse Pulse Assessment Method: NIBP Integumentary Skin Moisture: Dry Skin Turgor: Decreased Skin Color: no edema Fingernail Color: WNL Problem Qualifiers Primary Impression: Sepsis Sepsis type: sepsis due to unspecified organism Sepsis acute organ dysfunction status: with acute organ dysfunction Severe sepsis acute organ dysfunction type: acute respiratory failure Acute respiratory failure type: with hypercapnia Severe sepsis shock status: with septic shock Qualified Codes: A41.9 - Sepsis, unspecified organism; R65.21 - Severe sepsis with septic shock; J96.02 - Acute respiratory failure with hypercapnia Additional Impressions: AMS (altered mental status) Altered mental status type: delirium Qualified Codes: R41.0 - Disor ientation, unspecified Pneumonia Pneumonia type: due to unspecified organism Laterality: unspecified laterality Lung location: unspecified part of lung Qualified Codes: J18.9 - Pneumonia, unspecified organism UTI (urinary tract infection) Urinary tract infection type: site unspecified Hematuria presence: with hematuria Qualified Codes: N39.0 - Urinary tract infection, site not specified; R31.9 - Hematuria, unspecified ISABELLE FRAGA DO Jun 09, 2019 13:05
[2019-06-09] MEDS ORDERED: PIPERACILLIN/TAZOBACTAM 4.5 GM VIAL IV ONE (13:29)
[2019-06-09] MEDS ORDERED: IV NORMAL SALINE 50ML 50 ML ONE (13:29)
[2019-06-09 13:42] LABS: BGAS PH 7.21 (7.35-7.45)
--- NOTE | 2019-06-09 13:43 | RAD ---
EXAM: Chest, single view. HISTORY: Sepsis. COMPARISON: Radiograph dated 04/24/[address] dated 12/30/2014. FINDINGS: A frontal view of the chest is obtained. There is chronic interstitial changes. There are small nodular opacities overlying both lungs. There is a stable cardiac silhouette. There is no consolidation, pleural effusion or pneumothorax. IMPRESSION: 1. Suspected chronic interstitial changes. 2. Small nodular opacities overlying both lungs, possibly corresponding with noncalcified nodules on the prior CT dated 12/30/2014. The possibility of superimposed nodular infiltrate is not excluded. Electronically signed by: Cesia Maurer MD (06/09/2019 1:40 PM) [facility]
[2019-06-09] MEDS ORDERED: VANCOMYCIN 1 GM in IV NORMAL SALINE 250ML 250 ML IV ONE (14:00)
[2019-06-09 14:04] LABS: BASO % 0 % (0-3); EOS # 0.1 x10^3/uL (0.0-0.7); EOS % 0 % (0-3); HEMATOCRIT 46.8 % (36.0-47.0); HEMOGLOBIN 14.4 g/dL (12.0-15.5); LYMPH # 0.7 x10^3/uL (1.0-4.8); LYMPH % 5 % (24-48); MEAN CORPUSCULAR HEMOGLOBIN 29 pg (25-35); MEAN CORPUSCULAR HGB CONC 31 g/dL (31-37); MEAN CORPUSCULAR VOLUME 94 fL (79-100); MONO # 0.7 x10^3/uL (0.0-1.1); MONO % 5 % (0-9); NEUT # 14.2 x10^3uL (1.8-7.7); NEUT % 90 % (31-73); PLATELET COUNT 486 x10^3/uL (140-400); RED CELL DISTRIBUTION WIDTH 17.9 % (11.5-14.5); WHITE BLOOD COUNT 15.7 x10^3/uL (4.0-11.0)
[2019-06-09] MEDS ORDERED: IV NORMAL SALINE 250ML 250 ML ONE (14:25)
[2019-06-09] MEDS ORDERED: VANCOMYCIN 1 GM VIAL. ONE (14:25)
[2019-06-09 14:30] LABS: ALBUMIN 3.6 g/dL (3.4-5.0); ALBUMIN/GLOBULIN RATIO 0.9 (1.0-1.7); CALCIUM 9.9 mg/dL (8.5-10.1); CREATININE 2.2 mg/dL (0.6-1.0); GFR 21.1; POTASSIUM 4.8 mmol/L (3.5-5.1); TOTAL BILIRUBIN 1.1 mg/dL (0.2-1.0); TOTAL PROTEIN 7.6 g/dL (6.4-8.2)
[2019-06-09 14:36] LABS: % EOS 1 % (0-5); % LYMPHS 3 % (24-48); % METAS 1 % (0-0); % MONOS 3 % (0-10); % SEGS 92 % (35-66); PLT ESTIMATE INCREASED (ADEQUATE)
[2019-06-09] MEDS ORDERED: IV DEXTROSE 5% 1,000 ML IV ONE (15:15)
[2019-06-09 15:47] LABS: BACTERIA,URINE FEW /HPF (0-FEW); BILIRUBIN,URINE NEG (NEG); CLARITY,URINE CLOUDY; COLOR,URINE YELLOW; GLUCOSE,URINE 100 mg/dL (NEG); NITRITE,URINE NEG (NEG); UROBILINOGEN,URINE 0.2 mg/dL (0.2 mg/dL)
[2019-06-09 15:48] LABS: GRANULAR CASTS,URINE OCC /HPF; HYALINE CASTS, URINE OCC /HPF; SQUAMOUS EPITHELIAL CELL,UR OCC /LPF; YEAST,URINE PRESENT /HPF
[2019-06-09] MEDS: FLUCONAZOLE 200MG/100ML PREMIX 100 ML IV SCH (16:00)
--- NOTE | 2019-06-09 16:45 | NUR ---
Admit to room icu bed 4 via cart accompanied by staff. Awake but drowsy, alert to name. Vs stable at this time. No c/o discomfort. Oreinted to room and explained all procedures, will need reinforcement.
[2019-06-09] MEDS ORDERED: PIP/TAZO PER PHARMACY MC PRN (17:45)
[2019-06-09] MEDS: IV DEXTROSE 5% 1,000 ML IV SCH (18:00)
[2019-06-09 18:10] LABS: BGAS PH 7.31 (7.35-7.45)
[2019-06-09 19:14] LABS: CALCIUM 8.2 mg/dL (8.5-10.1); GFR 23.6; POTASSIUM 4.2 mmol/L (3.5-5.1)
--- NOTE | 2019-06-09 19:39 | HP ---
ADMIT DATE: 06/09/2019 HISTORY OF PRESENT ILLNESS: The patient is an 88-year-old female patient, a resident at [facility] in [place], who was brought by EMS from her nursing facility with concern for altered mental status and sepsis. She is normally alert to self, but she was not alert to self earlier today. Her oxygen saturation this morning was in the mid 90s, but then dropped to below 80 by noon. She was diagnosed with UTI and placed on Macrobid, but she is not wanting to eat or drink. It is unclear if she got any more than one dose. The nursing staff at the facility found her to be tachycardic, hypoxic, so they sent her to the Emergency Room. The patient is awake and alert, but not answering any question. She was extensively evaluated in the Emergency Room, was found to have her lab work showed that she has severe hypernatremia with a serum sodium 165. She has acute kidney injury, impaired liver enzymes and lactic acidosis. Her troponin was high at 0.284. She has also leukocytosis. Her blood gases showed she has acute hypercapnic respiratory failure and her urinalysis showed there is large amount of blood, 11-20 wbc's and few bacteria. Her chest x-ray showed that she has suspected chronic interstitial changes, small nodular opacities overlying both lungs, possibly corresponding to known noncalcified nodules in the prior CT scan. The possibility of a superimposed nodular infiltrate is not excluded. The patient has received a liter of normal saline and was started on vancomycin as well as piperacillin and tazobactam was admitted for further evaluation and treatment. PAST MEDICAL HISTORY: Significant for dementia of Alzheimer type. She has a history of dysphagia, muscle weakness, right knee osteoarthritis, generalized osteoarthritis and a history of recurrent falls. She is also known to have chronic obstructive pulmonary disease, peripheral vascular disease, major depressive disorder, hypertension and difficulty walking. PAST SURGICAL HISTORY: Unremarkable. ALLERGIES: She has no known drug allergies. FAMILY HISTORY: Noncontributory. SOCIAL HISTORY: She is currently residing at [facility] in [place]. She does not smoke, drink alcohol or use any recreational drugs. REVIEW OF SYSTEMS: Not obtainable. MEDICATIONS: She is on following medications: She is on Namzaric 28/10 mg capsule 1 capsule once a day. She is on dextromethorphan 10 mL every 4 hours. She is on Breo Ellipta 100/25 one puff once a day, triamcinolone acetonide cream apply topically twice a day, multivitamin 1 tablet once a day, glycopyrrolate via inhaler twice a day. PHYSICAL EXAMINATION: GENERAL: On arrival to the Emergency Room, the patient was extremely tachypneic, tachycardic. She was pale, but no jaundice, cyanosis or thyromegaly. No jugular venous distention. No lower limb edema. VITAL SIGNS: Her heart rate was 134, blood pressure was 99/48, temperature was 98.4, respiratory rate was 30 and oxygen saturation was 80% on room air. HEAD, EYES, EARS, NOSE AND THROAT: Showed normocephalic, atraumatic. NECK: Supple. HEART: Showed normal first and second heart sounds. No gallop or murmur. CHEST: Shows central trachea, equally reduced expansion, reduced air entry, vesicular sounds with scattered rhonchi bilaterally. GASTROINTESTINAL: Abdomen is scaphoid, soft, nontender. NEUROLOGIC: She is awake, opens her eyes and tracks, but does not respond verbally. All her cranial nerves seem to be grossly intact. She has marked muscle wasting and fixed flexion contraction of all 4 limbs. LABORATORY DATA: On arrival showed a white cell count 15,700, hemoglobin 14.4, hematocrit 46.8, MCV 94 and platelet count of 186,000 with normal manual differential. Her chemistry showed a serum sodium 165, potassium 4.8, chloride 120, bicarbonate 30, anion gap of 15, BUN 75, creatinine 2.2, estimated GFR was 21 mL per minute. Her glucose is 142. Lactic acid was 4.3, calcium was 9.9. Total bilirubin is 1.1. AST, ALT, alkaline phosphatase are all elevated. Her troponin was less than 0.284. Total protein was 7.6, albumin was 3.6. Her blood gases showed a pH of 7.21, pCO2 74, pO2 152, bicarbonate 29 and oxygen saturation was 99% on FiO2 of 35%. Her prothrombin time, INR and aPTT are normal. Urinalysis showed the urine was yellow, cloudy with a pH of 8.5, specific gravity of 1.020. There was large amount of protein, small amount of glucose, trace of ketones, large amount of blood, negative for nitrite and bilirubin. There was trace of leukocyte esterase, 3-5 rbc's, 11-20 wbc's and very few bacteria. Her chest x-ray showed suspected chronic interstitial changes, small nodular opacities overlying both lungs, possibly corresponding with noncalcified nodules seen on the prior CT scan dated on 12/30/2014, possibility of superimposed nodular infiltrate is not excluded. ASSESSMENT AND PLAN: 1. In summary, this is an 88-year-old female patient, resident at [facility] in [place], who was admitted with altered mental status. 2. Acute hypercapnic respiratory failure. 3. Severe hypernatremia. 4. Acute on chronic kidney injury. 5. Lactic acidosis. 6. Deranged liver enzyme. 7. Elevated troponin. 8. Possibility of healthcare-associated pneumonia and possible urinary tract infection. PLAN: Plan is to continue with D5W, continue with IV antibiotic as per pharmacy recommendation as she probably is not a good candidate for oral vancomycin, was started on Zyvox and I will cut down the piperacillin to 2.25 grams IV every 8 hours. We will increase her D5W to 160 per hour. We will monitor her lab work closely and decide the further management accordingly. She is obviously very critical. We will repeat also her blood gases and if she required intubation, we might have to transfer her to [facility]. LUISA RINCON MD DR: JOSE ANGEL/juan JOB#: [id number] / [id number]
[2019-06-09] MEDS: PIPERACILLIN/TAZOBACTAM 2.25 GM in IV NORMAL SALINE 50ML 50 ML IV SCH (19:56)
[2019-06-10] VITALS (23 sets, daily range): BP systolic 91–153; BP diastolic 38–90
[2019-06-10] MEDS: PIPERACILLIN/TAZOBACTAM 2.25 GM in IV NORMAL SALINE 50ML 50 ML IV SCH ×2
[2019-06-10] MEDS: IV DEXTROSE 5% 1,000 ML IV SCH ×3 (04:57→23:48)
[2019-06-10 06:46] LABS: HEMATOCRIT 33.8 % (36.0-47.0); HEMOGLOBIN 10.4 g/dL (12.0-15.5); RED BLOOD COUNT 3.65 x10^6/uL (3.50-5.40); RED CELL DISTRIBUTION WIDTH 16.8 % (11.5-14.5); WHITE BLOOD COUNT 16.1 x10^3/uL (4.0-11.0)
[2019-06-10] MEDS ORDERED: PIPERACILLIN/TAZOBACTAM 2.25 GM in IV DEXTROSE 5% 50 ML IV SCH (07:07)
[2019-06-10 07:10] LABS: ALBUMIN 2.5 g/dL (3.4-5.0); ALBUMIN/GLOBULIN RATIO 0.9 (1.0-1.7); CALCIUM 7.8 mg/dL (8.5-10.1); CREATININE 1.9 mg/dL (0.6-1.0); POTASSIUM 3.7 mmol/L (3.5-5.1); TOTAL BILIRUBIN 0.8 mg/dL (0.2-1.0); TOTAL PROTEIN 5.4 g/dL (6.4-8.2)
[2019-06-10] MEDS: PIPERACILLIN/TAZOBACTAM 2.25 GM in IV DEXTROSE 5% 50 ML IV SCH ×3 (07:24→22:36)
[2019-06-10] MEDS: FLUCONAZOLE 200MG/100ML PREMIX 100 ML IV SCH (16:22)
--- NOTE | 2019-06-10 16:35 | NUR ---
PT still lethargic and not wanting to sit up in bed. Pt constantly taking off oxygen and wires. Tried to feed patient and she threw food at us. Daughter at bedside did mention FC vs DNR. PT only alert to self. Mariangel SANDOVAL
[2019-06-11] VITALS (13 sets, daily range): BP systolic 92–125; BP diastolic 57–73
--- NOTE | 2019-06-11 03:56 | PN ---
DATE: 06/10/2019 SUBJECTIVE: The patient is resting, slightly propped up in bed, in no apparent distress. She is definitely more awake, alert, responding appropriately. She opens eyes, tracks. PHYSICAL EXAMINATION: GENERAL: When I examined her, she looked pale, cachectic, but no jaundice, cyanosis or thyromegaly. No jugular venous distension. No lower limb edema. VITAL SIGNS: Her heart rate was 64, blood pressure was 129/74, temperature was 98.4, respiratory rate was 18 and oxygen saturation was 93% on 2 liters of oxygen. HEAD, EYES, EARS, NOSE AND THROAT: Showed normocephalic, atraumatic. NECK: Supple. HEART: Showed normal first and second heart sounds. No gallop, rub or murmur. CHEST: Clear to auscultation. No crepitation or rhonchi. ABDOMEN: Scaphoid, soft, nontender. NEUROLOGIC: She was more awake, alert, opens eyes, tracks and responds appropriately. She has marked muscle wasting and fixed flexion contraction of all 4 limbs. Her intake over the last 24 hours was 1770, no output was recorded. LABORATORY DATA: Her lab work this morning showed a white cell count of 16,000, hemoglobin 10, hematocrit 33, MCV 92, and platelet count 294,000. Her chemistry showed her serum sodium is down to 157, potassium 3.7, chloride 120, bicarbonate 30, anion gap of 7, BUN 65, creatinine 1.9. Her estimated GFR was 25 mL per minute. Her glucose 138, calcium was 7.8. Total bilirubin and alkaline phosphatase normal. AST, ALT slightly elevated. Total protein was 5.4, albumin 2.7. So far, all her blood cultures still negative. ASSESSMENT: 1. Altered mental status, improving. 2. Acute hypercapnic respiratory failure, resolved. 3. Severe hypernatremia, improving. 4. Acute on chronic kidney injury, improving. 5. Lactic acidosis, improving. 6. Deranged liver enzymes are improving. 7. Elevated troponin. 8. Possible healthcare-associated pneumonia and urinary tract infection. PLAN: To continue with D5W, continue with IV antibiotic in the form of Zyvox and piperacillin and tazobactam. We have discussed the DNR/DNI status with her daughter and she is the DPOA, but she does not want her to be intubated on our CPR. LUISA RINCON MD DR: Elkin JOB#: [id number] / [id number]
[2019-06-11] MEDS: PIPERACILLIN/TAZOBACTAM 2.25 GM in IV DEXTROSE 5% 50 ML IV SCH ×3 (05:36→22:31)
[2019-06-11 06:55] LABS: HEMATOCRIT 32.7 % (36.0-47.0); HEMOGLOBIN 10.1 g/dL (12.0-15.5); RED BLOOD COUNT 3.53 x10^6/uL (3.50-5.40); RED CELL DISTRIBUTION WIDTH 16.6 % (11.5-14.5); WHITE BLOOD COUNT 13.7 x10^3/uL (4.0-11.0)
[2019-06-11 06:58] LABS: ALBUMIN 2.2 g/dL (3.4-5.0); ALBUMIN/GLOBULIN RATIO 0.8 (1.0-1.7); CALCIUM 7.8 mg/dL (8.5-10.1); CREATININE 1.4 mg/dL (0.6-1.0); GFR 35.6; POTASSIUM 3.4 mmol/L (3.5-5.1); TOTAL BILIRUBIN 0.6 mg/dL (0.2-1.0); TOTAL PROTEIN 4.9 g/dL (6.4-8.2)
[2019-06-11] MEDS ORDERED: POTASSIUM CHLORIDE 20 MEQ TABLET.ER. PO ONE ×2 (10:30→17:30)
[2019-06-11] MEDS: IV DEXTROSE 5% 1,000 ML IV SCH ×2 (11:05→17:17)
[2019-06-11] MEDS ORDERED: IPRATRPIUM/ALBUTEROL 0.5/2.5MG 3 ML NEBU. NEB PRN (11:45)
--- NOTE | 2019-06-11 14:37 | NUR ---
Pt still confused. Pt pulls off all wires frequently and will not leave nasal cannula on. Pt sounds more congested today and oxygen is 89% on RA. Pt given duoneb and will continue to monitor. Mariangel SANDOVAL
--- NOTE | 2019-06-11 15:10 | RAD ---
Frontal chest radiograph compared to similar exam dated June 09, 2019 for shortness of breath. FINDINGS: There are no new lung parenchymal abnormalities. Coarse chronic interstitial changes are stable. Heart size within normal limits. There is a skinfold over the right chest mimicking a pneumothorax. No definite pneumothorax is seen however. Bones are diffusely osteopenic. IMPRESSION: 1. Stable chest x-ray with chronic interstitial changes and COPD. Electronically signed by: Jayesh Eller MD (06/11/2019 3:07 PM) [id number]
[2019-06-11] MEDS ORDERED: FUROSEMIDE 20 MG/2 ML VIAL IVP ONE (15:45)
[2019-06-11] MEDS: FLUCONAZOLE 200MG/100ML PREMIX 100 ML IV SCH (16:00)
--- NOTE | 2019-06-11 17:00 | NUR ---
Pt having increased dyspnea throughout the day. She was 92% on RA yesterday and is now 89% with auditory congestion. CXR completed, and BNP added to labs. IV fluids stopped and IV lasix and po potassium given. Will continue to monitor. Mariangel SANDOVAL
--- NOTE | 2019-06-11 18:13 | NUR ---
PT seems to tolerating food ok. Sometimes she will roll food around in mouth and has poor dentation. Maybe be due to dementia. When the patient is really hungry she can feed self just very slow. Has to have 1:1 coaching at times and must be reminded to take drinks. No coughing noted when eating tonight. PT getting more and more confused. Pt is awake and pulling off wire and trying to 'go back to room'. Mariangel SANDOVAL
[2019-06-12] VITALS (9 sets, daily range): BP systolic 87–128; BP diastolic 51–70
--- NOTE | 2019-06-12 04:16 | PN ---
DATE: SUBJECTIVE: The patient is resting, slightly propped up in bed; is definitely more awake, alert, but clearly very tachypneic, pale, cachectic. No jaundice, no cyanosis. No lymphadenopathy, no thyromegaly, no jugular venous distention. No lower limb edema. OBJECTIVE: VITAL SIGNS: Her heart rate was 83, blood pressure was 105/60, temperature was 98.3, respiratory rate 20 and oxygen saturation was 92%. HEAD, EYES, EAR, NOSE AND THROAT: Normocephalic, atraumatic. NECK: Supple. HEART: Showed normal first and second heart sounds. No gallop or murmur. CHEST: Shows central trachea, equal bilateral expansion and air entry, vesicular sounds with crepitations bilaterally. ABDOMEN: Scaphoid, soft, nontender. NEUROLOGIC: She is definitely more awake, alert, responding appropriately. All cranial nerves intact. She moves her upper extremities much greater extent than lower extremities. Her intake over the last 24 hours 1717, no output was recorded. LABORATORY DATA: Her serum sodium today is down to 148, potassium 3.4, chloride 110, bicarbonate 30, anion gap of 7, BUN 42, creatinine 1.4. Estimated GFR was 36 mL per minute. Her glucose was 93, calcium was 7.8. Total bilirubin and alkaline phosphatase is normal. AST, ALT slightly elevated. Total protein is 4.9, albumin 2.2. Her white cell count is down to 13,700, hemoglobin 10, hematocrit 32, MCV was 93 and platelet count 246,000. ASSESSMENT: 1. Altered mental status, improving. The patient is definitely more awake, alert. 2. Acute hypercapnic respiratory failure. 3. Severe hypernatremia, improving. Her serum sodium came down from 165 down to 148. 4. Acute on chronic kidney injury, improving. 5. Lactic acid has improved. 6. Deranged liver enzymes again are improving. 7. Elevated troponin within the context of impaired kidney function. 8. Possible healthcare-associated pneumonia as well as urinary tract infection. PLAN: To hold IV fluid, start her on low dose Lasix 20 mg, continue with IV Zyvox and Zosyn. LUISA RINCON MD DR: JOSE ANGEL/juan JOB#: [id number] / [id number]
[2019-06-12] MEDS: PIPERACILLIN/TAZOBACTAM 2.25 GM in IV DEXTROSE 5% 50 ML IV SCH ×3 (05:31→22:25)
[2019-06-12 06:27] LABS: HEMATOCRIT 34.6 % (36.0-47.0); HEMOGLOBIN 10.7 g/dL (12.0-15.5); RED BLOOD COUNT 3.79 x10^6/uL (3.50-5.40); RED CELL DISTRIBUTION WIDTH 16.7 % (11.5-14.5); WHITE BLOOD COUNT 14.3 x10^3/uL (4.0-11.0)
[2019-06-12 06:39] LABS: ALBUMIN 2.3 g/dL (3.4-5.0); ALBUMIN/GLOBULIN RATIO 0.7 (1.0-1.7); CALCIUM 7.8 mg/dL (8.5-10.1); CREATININE 1.3 mg/dL (0.6-1.0); GFR 38.7; POTASSIUM 3.5 mmol/L (3.5-5.1); TOTAL BILIRUBIN 0.6 mg/dL (0.2-1.0); TOTAL PROTEIN 5.4 g/dL (6.4-8.2)
[2019-06-12] MEDS: LACTOBACILLUS RHAMNOSUS GG 1 CAPSULE. PO SCH ×2 (09:00→20:56)
[2019-06-12] MEDS: IV DEXTROSE 5% 1,000 ML IV SCH (14:04)
[2019-06-12] MEDS: FLUCONAZOLE 200MG/100ML PREMIX 100 ML IV SCH (15:14)
[2019-06-13] VITALS (8 sets, daily range): BP systolic 94–142; BP diastolic 52–79
--- NOTE | 2019-06-13 02:12 | PN ---
DATE: 06/12/2019 SUBJECTIVE: The patient is resting, slightly propped up in bed, in no apparent respiratory distress. She is definitely more awake, alert, very confused, but does not seem to be in any acute respiratory distress. PHYSICAL EXAMINATION: GENERAL: When I examined her, she was pale, cachectic, but no jaundice, cyanosis or thyromegaly. No jugular venous distension. No lower limb edema. VITAL SIGNS: Her heart rate was 87, blood pressure was 128/70, temperature was 97.8, respiratory rate was 18 and oxygen saturation was 98% on 2 liters of oxygen. HEAD, EYES, EARS, NOSE AND THROAT: Showed normocephalic, atraumatic. NECK: Supple. HEART: Showed normal first and second heart sounds. No gallop or murmur. CHEST: Clear to auscultation. No crepitation or rhonchi. ABDOMEN: Scaphoid, soft, nontender. NEUROLOGIC: She is demented, but without any obvious lateralizing sign. All her cranial nerves intact. She moves extremities. Her upper extremities have much good extent than her lower extremities. She is mostly bed bound. Her intake over the last 24 hours was 2100, output was 850. LABORATORY DATA: Her lab work this morning showed a serum sodium of 148, potassium 3.5, chloride 108, bicarbonate 35, anion gap of 5, BUN 27, creatinine was 1.3, estimated GFR was 38 mL per minute. Her glucose was 86, calcium was 7.8. Total bilirubin, AST, ALT, alkaline phosphatase slightly elevated, but trending down. Total protein was 5.4 and albumin was 2.3. ASSESSMENT: 1. Altered mental status, improving. The patient is definitely more awake, alert, although she is obviously demented. 2. Acute hypercapnic respiratory failure, resolved. 3. Severe hypernatremia, improving. Serum sodium came down from 165 to 148. 4. Acute on chronic kidney injury, improving. 5. Lactic acidosis has improved. 6. Deranged liver enzymes are also improving. 7. Elevated troponin within the context of impaired kidney function. 8. Possible healthcare-associated pneumonia as well as urinary tract infection. PLAN: Continue with IV fluid in the form of D5W, continue with Zyvox and Zosyn. Repeat her lab works tomorrow. Once stabilized, [facility]. LUISA RINCON MD DR: Elkin JOB#: [id number] / [id number]
--- NOTE | 2019-06-13 02:53 | NUR ---
Pt has been sleeping on and off this shift, while awake she fed herself her snack. Pt has been yelling out periodically. Pt also keeps removing her oxygen nasal cannula. Pt does desat to the 85% when off oxygen. This nurse and tech have been repositioning pt frequently during the shift. Pt does turn herself sideways in her bed, putting her legs over the side bed rail. Will continue to monitor pt closely.
[2019-06-13] MEDS: PIPERACILLIN/TAZOBACTAM 2.25 GM in IV DEXTROSE 5% 50 ML IV SCH ×2 (05:45→14:00)
[2019-06-13] MEDS: IV DEXTROSE 5% 1,000 ML IV SCH (05:51)
[2019-06-13 06:37] LABS: HEMATOCRIT 34.2 % (36.0-47.0); HEMOGLOBIN 10.5 g/dL (12.0-15.5); RED BLOOD COUNT 3.78 x10^6/uL (3.50-5.40); RED CELL DISTRIBUTION WIDTH 16.5 % (11.5-14.5); WHITE BLOOD COUNT 11.4 x10^3/uL (4.0-11.0)
[2019-06-13 06:45] LABS: GFR 52.4; POTASSIUM 3.6 mmol/L (3.5-5.1)
[2019-06-13] MEDS: LACTOBACILLUS RHAMNOSUS GG 1 CAPSULE. PO SCH (09:26)
[2019-06-13] MEDS: FLUCONAZOLE 200MG/100ML PREMIX 100 ML IV SCH (16:00)
--- NOTE | 2019-06-13 18:13 | NUR ---
IRENE NOTE; DISCHARGE REPORT CALLED TO MARTIN RUSSELL AT 1600 PAPER COPY OF CHART INCLUDING MED REC SENT WITH PT DISCHARGED AT 1809 VIA W/C [facility]OMP BY [facility] TRANSPORT PERSONNEL FOR RETURN TO [facility] Addendum: 06/13/19 at 181 by ERLINDA QUINTEROS RN DAUGHTER APURVA DOMINGUEZ NOTIFIED AT 181 OF DISCHARGE
--- NOTE | 2019-06-13 20:11 | DS ---
DATE OF DISCHARGE: 06/13/2019 HOSPITAL COURSE: The patient is an 88-year-old female patient, a resident at [facility] in [place], who was admitted with altered mental status. She was also noted to be hypoxic and she was evaluated in the Emergency Room, was admitted with altered mental status and was found to have acute hypercapnic respiratory failure, severe hypernatremia serum sodium up to 165, acute on chronic kidney injury, lactic acidosis and deranged liver enzymes, elevated troponin, possible healthcare-associated pneumonia as well as urinary tract infection. She was started on D5W together with IV Zyvox and Zosyn and she did extremely well. Her lab work has steadily improved. Her serum sodium came down from 165-143. Her BUN came down from 75-16 and creatinine came down from 2.2 down to 1 mg/dL. Her white cell count also came down from 15,700-11.4. Urine culture so far showed 25-50,000 colony forming units of mixed urogenital rylan. Her blood cultures were negative and she remained hemodynamically stable and afebrile, a decision was made to discharge her back to the [facility] in [place] to continue with all her other medications including the oral Augmentin. PHYSICAL EXAMINATION: GENERAL: When I saw her this afternoon, she was pale, cachectic, but no jaundice, cyanosis or thyromegaly. No jugular venous distention. No limb edema. VITAL SIGNS: Her heart rate was 66, blood pressure 142/75, temperature was 97.4, respiratory rate was 18 and oxygen saturation was 93% on 2 liters of oxygen. HEAD, EYES, EARS, NOSE AND THROAT: Showed normocephalic, atraumatic. NECK: Supple. HEART: Showed normal first and second heart sounds. No gallop, rub or murmur. CHEST: Shows central trachea, equally reduced expansion, reduced air entry, vesicular sounds. I could not really appreciate any crepitation or rhonchi. ABDOMEN: Scaphoid, soft, and nontender. NEUROLOGIC: She is definitely more awake, alert and interactive. All her cranial nerves intact. She moves upper extremities without difficulty. However, she is mostly bedbound, chair bound. Her intake over the last 24 hours was 1300, output was 2000. LABORATORY DATA: As of this morning, her levels a white cell count was 11,400, hemoglobin 10.5, hematocrit 34, MCV 91, and platelet count 259,000. Her chemistry showed a serum sodium 143, potassium 3.6, chloride 104, bicarbonate 36, anion gap of 3, BUN 16, creatinine 1, estimated GFR was 52 mL per minute. Her glucose was 93, calcium was 8. DISCHARGE MEDICATIONS: She will be discharged home to continue on albuterol and Atrovent as well as her other home medications including Namzaric 28/10 mg capsule once a day, Breo Ellipta 100/25 one inhalation once a day, multivitamin 1 tablet once a day and Glycopyrrolate 1 vial inhalation twice a day. FINAL DISCHARGE DIAGNOSES: 1. Altered mental status, multifactorial, improved. 2. Acute hypercapnic respiratory failure, resolved. 3. Severe hypernatremia, resolved. Her serum sodium came down from 165-138. 4. Acute on chronic kidney injury, improved. Her creatinine came down from 2.2-1. 5. Lactic acidosis, improved. 6. Deranged liver enzyme has improved. 7. Elevated troponin within the context of impaired kidney function, possible healthcare-associated pneumonia. Her urine culture is otherwise negative. LUISA RINCON MD DR: JOSE ANGEL/juan JOB#: [id number] / [id number]
== END 2019-06-13 18:09 | DRG 871 ==
LOC: ER 12:50 → ICU 16:08
PROVIDERS: ADMIT Internal Medicine; ATTEND Internal Medicine
DX: A41.9 Sepsis, unspecified organism (principal); J18.9 Pneumonia, unspecified organism; J96.02 Acute respiratory failure with hypercapnia; N17.9 Acute kidney failure, unspecified; E87.0 Hyperosmolality and hypernatremia; E87.2 Acidosis; N39.0 Urinary tract infection, site not specified; R64 Cachexia; Z68.1 Body mass index [BMI] 19.9 or less, adult; J44.0 Chronic obstructive pulmonary disease with (acute) lower respiratory infection; F02.80 Dementia in other diseases classified elsewhere, unspecified severity, without behavioral disturbance, psychotic disturbance, mood disturbance, and anxiety; F32.9 Major depressive disorder, single episode, unspecified; M17.11 Unilateral primary osteoarthritis, right knee; N18.9 Chronic kidney disease, unspecified; G30.9 Alzheimer's disease, unspecified; Y95 Nosocomial condition; I73.9 Peripheral vascular disease, unspecified; I12.9 Hypertensive chronic kidney disease with stage 1 through stage 4 chronic kidney disease, or unspecified chronic kidney disease; E86.0 Dehydration
CPT/HCPCS: 36415; 36600; 51702; 71045; 80048; 80053; 81001; 82803; 83605; 83880; 84484; 85007; 85025; 85027; 85610; 85730; 87040; 87086; 94640; 96361; 96365; 96368; J1450; J2020; J2543; J3370; J7050; J7620; 99291-25; J7030